=== PATIENT | male | born 1965 | race African-American/Black ===

== ENCOUNTER → 2021-02-27 | Day surgery (SDC) | payer OTHER ==
[~2021-02-27] MED LIST: atorvastatin; ibuprofen; lisinopril; vitamin d
[2021-02-27 15:37] VITALS: BP 169/97
== END | disposition home or self-care (01) ==
LOC: SURG 15:29
PROVIDERS: ATTEND Anesthesiology
DX: M47.816 Spondylosis without myelopathy or radiculopathy, lumbar region (principal); I10 Essential (primary) hypertension; M79.18 Myalgia, other site; Z79.899 Other long term (current) drug therapy; Z98.890 Other specified postprocedural states
CPT/HCPCS: 99204; G0463